=== PATIENT | male | born 1980 | race Caucasian/White ===

== ENCOUNTER 2022-07-08 10:35 | Emergency (ER) | payer MEDICAID ==
[~2022-07-08] VITALS: Ht 180 cm; Wt 115.0 kg
[~2022-07-08 10:35] MED LIST: FLT4413 IH; NAPR220T66 PO; RT-ALBUINH IH
--- NOTE | 2022-07-08 11:15 | ED Upper Extremity ---
General Chief Complaint: Upper Extremity Stated Complaint: RT HAND INJ Nursing Triage Note: PT AMB TO TRIAGE PT CO OF R HAND PAIN, PT STATES WAS MOVING FURNITURE AND HIT AGAINST DOOR WAY, PT HAS CONT TO INCREASE. PT HAS SWELLING IN R HAND Source: patient Exam Limitations: no limitations History of Present Illness Date Seen by Provider: Jul 08, 2022 Time Seen by Provider: 11:13 Initial Comments Patient is a 42-year-old male who presents ED with right dorsum hand pain. Patient states 4 days ago he slammed his hand against a door jam and antique piece while moving it. Patient had immediate pain with swelling. Pain has stayed about the same. Reports since last night numbness and tingling on the dorsum side of the right hand. Patient has been taken Tylenol Extra Strength with some improvement. Refused pain medication on arrival. No history of previous injury or fracture. 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 Allergies and Home Medications Allergies Coded Allergies: Penicillins (Verified Allergy, Severe, 05/12/15) patient used this med and woke up with a telephone pole dangling over his vehicle Patient Home Medication List Home Medication List Reviewed: Yes Albuterol Sulfate (Proventil Hfa) 6.7 Gm Hfa.aer.ad, 2 PUFF IH Q4H PRN for SHORTNESS OF BREATH, (Reported) Entered as Reported by: CLARIBEL MORRIS on 05/12/15 1425 Fluticasone Propionate (Flovent Hfa 44 mcg) 1 Ea Aero, 2 EA IH BID Prescribed by: KUSHAL RICKS on 05/13/15 1555 Naproxen Sodium (Aleve) 220 Mg Tablet, 440 MG PO DAILY PRN for PAIN, (Reported) Entered as Reported by: CLARIBEL MORRIS on 05/12/15 1425 Review of Systems Constitutional: No chills, No diaphoresis, No malaise, No weakness EENTM: No ear pain, No blurred vision, No double vision Respiratory: No cough, No dyspnea on exertion Cardiovascular: No chest pain Gastrointestinal: No abdominal pain, No diarrhea, No nausea, No vomiting Genitourinary: No decreased output, No discharge Musculoskeletal: joint pain, joint swelling Skin: No change in color All Other Systems Reviewed Negative Unless Noted: Yes Past Rrecvuh-Iyrmmc-Whrmmj Hx Patient Social History Tobacco Use?: No Substance use?: No Alcohol Use?: No Pt feels they are or have been: No Immunizations Up To Date Influenza Vaccine Up-to-Date: No; Not Current Past Medical History Surgery/Hospitalization HX: HTN, DIABETES, CHRONIC PAIN, DEPRESSION, SOCIAL ANXIETY DISORDER, PTSD Orthopedic Asthma, Pneumonia High Cholesterol, Hypertension Reproductive Disorders: No Anxiety, Depression Physical Exam Vital Signs Vital Signs - First Documented 07/08/22 11:00 Temp 36.6 Pulse 124 Resp 16 B/P (MAP) 134/80 (98) Pulse Ox 96 Capillary Refill : Height, Weight, BMI Height: 5'11.00" Weight: 225lbs. 6.4oz. 102.342769qi; 35.00 BMI Method:Stated General Appearance: WD/WN, no apparent distress HEENT: PERRL/EOMI, normal ENT inspection, TMs normal, pharynx normal Neck: non-tender, full range of motion, supple, normal inspection Cardiovascular: regular rate, rhythm, no edema, no gallop Respiratory: chest non-tender, lungs clear, normal breath sounds, no respiratory distress, no accessory muscle use Gastrointestinal: normal bowel sounds, non tender, soft, no organomegaly Back: normal inspection, no CVA tenderness, no vertebral tenderness Shoulder: normal inspection, non-tender, no evidence of injury, normal ROM Elbow/Forearm: normal inspection, non-tender, no evidence of injury, Right Wrist: Yes non-tender, Yes no evidence of injury, Yes normal ROM Hand: Right, bone tenderness (Right mild swelling. Normal senior qa engineer strength 5 out of 5. Neurovascular intact. No obvious bone deformity. No crepitus. third and fourth MCP joint tenderness.) Neurologic/Psychiatric: racing board marker II-XII nml as tested, no motor/sensory deficits, alert, normal mood/affect, oriented x 3 Skin: normal color, warm/dry Progress/Results/Core Measures Results/Orders My Orders Orders - LAVINIA JAY Hand, Right, 3 Views (07/08/22 11:12) Vital Signs/I&O 07/08/22 11:00 Temp 36.6 Pulse 124 Resp 16 B/P (MAP) 134/80 (98) Pulse Ox 96 Blood Pressure Mean: 98 Departure Impression Primary Impression: Hand pain Disposition: 01 HOME, SELF-CARE Condition: Stable Departure-Patient Inst. Decision time for Depature: 11:45 Referrals: VANDANA MICHEL MD (PCP/Family) Primary Care Physician HUNG JONES MD Patient Instructions: Hand Pain Add. Discharge Instructions: Recommend ice and anti-inflammatories and rest. If any worsening symptoms recommend outpatient orthopedic follow-up in 7 to 10 days for further evaluation. All discharge instructions reviewed with patient and/or family. Voiced u nderstanding. Work/School Note: Work Release Form Date Seen in the Emergency Department: Jul 08, 2022 Return to Work: Jul 10, 2022 LAVINIA JAY Jul 08, 2022 11:15
--- NOTE | 2022-07-08 11:32 | Diagnostic Imaging Report ---
INDICATION: Hand pain following injury with swelling. FINDINGS: Three views of the right hand were performed. No gas or opaque foreign body. No fracture or dislocation. IMPRESSION: No acute injury is radiographically apparent. Dictated by: Dictated on workstation # [id number]
[2022-07-08 11:50] VITALS: BP 134/80
== END 2022-07-08 11:50 | disposition home or self-care (01) ==
LOC: EDUNIT# 10:35 → ER 10:38
DX: M79.89 Other specified soft tissue disorders (principal); W22.8XXA Striking against or struck by other objects, initial encounter
CPT/HCPCS: 73130